=== PATIENT | female | born 1965 | race Caucasian/White ===

== ENCOUNTER 2018-05-29 04:38 | Observation (INO) | payer BC, SELFPAY ==
[2018-05-29] MEDS ORDERED: ONDANSETRON 4 MG/2 ML VIAL ONE (05:04)
[2018-05-29] MEDS ORDERED: NA CHLORIDE 0.9% 1,000 ML ONE (05:04)
[2018-05-29 05:19] LABS: Absolute Lymphocytes (CBC) 1.1 K/uL (0.7-4.9); Absolute Monocytes 0.4 K/uL (0.1-1.3); Basophils % 0.1 % (0-1.3); Lymphocytes % 7.3 % (15.3-44.8); MCH 30.5 pg (27.0-35.0); MCV 87.9 fL (80-100); MPV 10.6 fL (7.6-11.3); Monocytes % 3.1 % (3.3-12.3)
[2018-05-29 05:22] LABS: Protime INR 1.07
[2018-05-29 05:40] LABS: ALT/SGPT 32 U/L (12-78); AST/SGOT 7 U/L (15-37); BUN Blood Urea Nitrogen 24 mg/dL (7-18); Bicarbonate 26 mmol/L (21-32); Glucose Level 289 mg/dL (74-106); Potassium 4.1 mmol/L (3.5-5.1); Sodium Level 138 mmol/L (136-145)
[2018-05-29 05:41] LABS: Albumin 4.4 g/dL (3.4-5.0); Alkaline Phosphatase 133 U/L (45-117); Bilirubin Direct 0.1 mg/dL (0-0.2); Bilirubin Total 0.6 mg/dL (0.2-1.0); Lipase 131 U/L (73-393); Magnesium 2.5 mg/dL (1.8-2.4); NT PRO-BNP 75 pg/mL (<125); Protein, Total 8.5 g/dL (6.4-8.2); Troponin (Emerg Dept Use Only) < 0.02 ng/mL (0.0-0.045)
[2018-05-29 05:46] LABS: Blood Morphology Comment NOT SEEN (NOT SEEN); Platelet Estimate ADEQ
--- NOTE | 2018-05-29 06:35 | ER ---
Nurse's Notes [facility] Name: Breonna Torres Age: 53 yrs Sex: Female : 1965 Arrival Date: 05/29/2018 Time: 04:40 Bed 6 Private MD: Diagnosis: Altered mental status, unspecified;Essential (primary) hypertension;Elevated white blood cell count;Nausea Presentation: 05/29 04:54 Presenting complaint: Patient states: she takes tramadol for her chronic back pain and aa1 thinks she may have taken too much. Reports she is unsure how many pills she took but states she is having nausea and can't think straight and urinated on herself. Pt drove herself to ED and ambulated into lobby with steady gait. Pt denies intention to harm self. Transition of care: patient was not received from another setting of care. Onset of symptoms was May 29, 2018. Risk Assessment: Do you want to hurt yourself or someone else? Patient reports no desire to harm self or others. Initial Sepsis Screen: Does the patient meet any 2 criteria? No. Patient's initial sepsis screen is negative. Does the patient have a suspected source of infection? No. Patient's initial sepsis screen is negative. Care prior to arrival: None. 04:54 Method Of Arrival: Ambulatory aa1 04:54 Acuity: ISH 3 aa1 Triage Assessment: 05:05 General: Appears in no apparent distress. comfortable, Behavior is calm, cooperative, aa1 appropriate for age. 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 LMP N/A - Post-menopause hj Historical: - Allergies: 05:05 No Known Allergies; aa1 - Home Meds: 05:05 duloxetine 60 mg oral cpDR 1 cap twice a day [Active]; buspirone 10 mg Oral tab 1 tab 2 aa1 times per day [Active]; lorazepam 0.5 mg Oral tab 1 tab nightly [Active]; glipizide 10 mg Oral tab 1 tab 2 times per day [Active]; atorvastatin 20 mg oral tab 1 tab once daily [Active]; lisinopril 20 mg Oral tab 1 tab twice a day [Active]; carvedilol 12.5 mg oral tab 1 tab 2 times per day [Active]; - PMHx: 05:05 Depression; High Cholesterol; Hypertension; Anxiety; Diabetes - NIDDM; aa1 - PSHx: 05:05 lap band; Heart stents; aa1 - Immunization history:: Flu vaccine is not up to date. - Social history:: Smoking status: Patient/guardian denies using tobacco. - Family history:: not pertinent. - Ebola Screening: : No symptoms or risks identified at this time. Screenin:19 Abuse screen: Denies threats or abuse. Nutritional screening: No deficits noted. tl2 Tuberculosis screening: No symptoms or risk factors identified. Fall Risk Gait- Impaired (20 pts.). Assessment: 05:10 General: Appears in no apparent distress. uncomfortable, Behavior is cooperative, tl2 agitated, anxious. Pain: Denies pain. Neuro: Level of Consciousness is obeys commands, confused, Oriented to person, place, time, situation, Speech is normal, Reports dizziness. Cardiovascular: Denies chest pain. Respiratory: Airway is patent Respiratory effort is even, unlabored, Respiratory pattern is regular, symmetrical. GI: Reports nausea. : No signs and/or symptoms were reported regarding the genitourinary system. Derm: Skin is pink, warm \T\ dry. 06:20 Reassessment: Patient appears in no apparent distress at this time. Patient and/or tl2 family updated on plan of care and expected duration. Pain level reassessed. Patient is alert, oriented x 3, equal unlabored respirations, skin warm/dry/pink. Pt is calm and resting quietly, states she feels better. Patient states feeling better. 07:25 General: Appears in no apparent distress. uncomfortable, Behavior is calm, cooperative, hj appropriate for age. Pain: Denies pain. Neuro: Level of Consciousness is awake, alert, obeys commands, Oriented to person, place, time, situation, Reports dizziness. Cardiovascular: Denies chest pain. Respiratory: Airway is patent Respiratory effort is even, unlabored, Respiratory pattern is regular, symmetrical. GI: Reports nausea. : No signs and/or symptoms were reported regarding the genitourinary system. EENT: No signs and/or symptoms were reported regarding the EENT system. Derm: Skin is pink, warm \T\ dry. Musculoskeletal: No signs and/or symptoms reported regarding the musculoskeletal system. Vital Signs: 05:05 BP 205 / 114; Pulse 55; Resp 18; Temp 97.0; Pulse Ox 100% ; Weight 86.64 kg; Height 5 aa1 ft. 6 in. (167.64 cm); 06:08 BP 173 / 104; Pulse 60; Resp 12; Pulse Ox 95% on R/A; tl2 05:05 Body Mass Index 30.83 (86.64 kg, 167.64 cm) aa1 ED Course: 04:40 Patient arrived in ED. es 04:50 Иван Albrecht MD is Attending Physician. gudelia 04:57 Triage completed. aa1 05:04 Angie Ospina, MAKSIM is Primary Nurse. tl2 05:05 Arm band placed on right wrist. Patient placed in an exam room, on a stretcher. aa1 05:29 CT completed. Patient tolerated procedure well. Patient moved to CT via stretcher. Patient moved back from CT. 05:39 X-ray completed. Portable x-ray completed in exam room. Patient tolerated procedure kw well. 06:21 Patient has correct armband on for positive identification. Placed in gown. Bed in low tl2 position. Call light in reach. Side rails up X2. 06:33 Theodore Rhodes MD is Hospitalizing Provider. gudelia 06:38 CT Head Brain wo Cont In Process Unspecified. EDMS Administered Medications: 05:04 Drug: NS 0.9% 1000 ml Route: IV; Rate: 1 bolus; Site: right antecubital; tl2 08:28 Follow up: IV Status: Completed infusion; IV Intake: 1000ml hj 05:04 Drug: Zofran 4 mg Route: IVP; Site: right antecubital; tl2 07:04 Follow up: Response: No adverse reaction hj 08:07 Drug: Zofran 4 mg Route: IVP; Site: right antecubital; ph 08:28 Follow up: Response: No adverse reaction; Nausea is decreased hj Intake: 08:28 IV: 1000ml; Total: 1000ml. Outcome: 06:33 Decision to Hospitalize by Provider. gudelia 09:20 Patient left the ED. eb Signatures: Dispatcher [employer] EDMS Carla West, RN RN aa1 Иван Albrecht MD MD cha Salyer, Edna es Hagler, Ervin Mitzi Malagon Patricia, RN RN Giovanny Perales RN RN Angie Ospina RN RN tl2 Lilian Lai Corrections: (The following items were deleted from the chart) 05:05 05:04 General: Appears in no apparent distress. uncomfortable, tl2 tl2 05:05 05:04 General: Appears in no apparent distress. uncomfortable, tl2 tl2 06:20 05:10 Neuro: Level of Consciousness is obeys commands, confused, Oriented to person, tl2 place, time, situation, tl2
--- NOTE | 2018-05-29 06:35 | EDPHYS ---
Physician Documentation [facility] Name: Breonna Torres Age: 53 yrs Sex: Female : 1965 Arrival Date: 05/29/2018 Time: 04:40 Bed 6 Private MD: ED Physician Иван Albrecht HPI: 05/29 04:56 This 53 yrs old Female presents to ER via Unassigned with complaints of gudelia Possible Overdose. 04:56 Context: Method: the patient has a confirmed or suspected ingestion. Severity of gudelia symptoms: At their worst the symptoms were mild in the emergency department the symptoms are unchanged. The patient has experienced similar episodes in the past, a few times. 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 LMP N/A - Post-menopause hj Historical: - Allergies: 05:05 No Known Allergies; aa1 - Home Meds: 05:05 duloxetine 60 mg oral cpDR 1 cap twice a day [Active]; buspirone 10 mg Oral tab 1 tab 2 aa1 times per day [Active]; lorazepam 0.5 mg Oral tab 1 tab nightly [Active]; glipizide 10 mg Oral tab 1 tab 2 times per day [Active]; atorvastatin 20 mg oral tab 1 tab once daily [Active]; lisinopril 20 mg Oral tab 1 tab twice a day [Active]; carvedilol 12.5 mg oral tab 1 tab 2 times per day [Active]; - PMHx: 05:05 Depression; High Cholesterol; Hypertension; Anxiety; Diabetes - NIDDM; aa1 - PSHx: 05:05 lap band; Heart stents; aa1 - Immunization history:: Flu vaccine is not up to date. - Social history:: Smoking status: Patient/guardian denies using tobacco. - Family history:: not pertinent. - Ebola Screening: : No symptoms or risks identified at this time. ROS: 04:57 Constitutional: Negative for fever, chills, and weight loss, Eyes: Negative for injury, gudelia pain, redness, and discharge, ENT: Negative for injury, pain, and discharge, Neck: Negative for injury, pain, and swelling, Cardiovascular: Negative for chest pain, palpitations, and edema, Respiratory: Negative for shortness of breath, cough, wheezing, and pleuritic chest pain, Back: Negative for injury and pain, : Negative for injury, bleeding, discharge, and swelling, MS/Extremity: Negative for injury and deformity, Skin: Negative for injury, rash, and discoloration, Psych: Negative for depression, anxiety, suicide ideation, homicidal ideation, and hallucinations, Allergy/Immunology: Negative for hives, rash, and allergies, Endocrine: Negative for neck swelling, polydipsia, polyuria, polyphagia, and marked weight changes, Hematologic/Lymphatic: Negative for swollen nodes, abnormal bleeding, and unusual bruising. 04:57 Abdomen/GI: Positive for nausea and vomiting. Exam: 04:57 Constitutional: This is a well developed, well nourished patient who is awake, alert, gudelia and in no acute distress. Head/Face: Normocephalic, atraumatic. Eyes: Pupils equal round and reactive to light, extra-ocular motions intact. Lids and lashes normal. Conjunctiva and sclera are non-icteric and not injected. Cornea within normal limits. Periorbital areas with no swelling, redness, or edema. ENT: Nares patent. No nasal discharge, no septal abnormalities noted. Tympanic membranes are normal and external auditory canals are clear. Oropharynx with no redness, swelling, or masses, exudates, or evidence of obstruction, uvula midline. Mucous membranes moist. Neck: Trachea midline, no thyromegaly or masses palpated, and no cervical lymphadenopathy. Supple, full range of motion without nuchal rigidity, or vertebral point tenderness. No Meningismus. Chest/axilla: Normal chest wall appearance and motion. Nontender with no deformity. No lesions are appreciated. Cardiovascular: Regular rate and rhythm with a normal S1 and S2. No gallops, murmurs, or rubs. Normal PMI, no JVD. No pulse deficits. Respiratory: Lungs have equal breath sounds bilaterally, clear to auscultation and percussion. No rales, rhonchi or wheezes noted. No increased work of breathing, no retractions or nasal flaring. Abdomen/GI: Soft, non-tender, with normal bowel sounds. No distension or tympany. No guarding or rebound. No evidence of tenderness throughout. Back: No spinal tenderness. No costovertebral tenderness. Full range of motion. Female : Normal external genitalia. Skin: Warm, dry with normal turgor. Normal color with no rashes, no lesions, and no evidence of cellulitis. MS/ Extremity: Pulses equal, no cyanosis. Neurovascular intact. Full, normal range of motion. Neuro: Awake and alert, GCS 15, oriented to person, place, time, and situation. Cranial nerves II-XII grossly intact. Motor strength 5/5 in all extremities. Sensory grossly intact. Cerebellar exam normal. Normal gait. Psych: Awake, alert, with orientation to person, place and time. Behavior, mood, and affect are within normal limits. 07:36 Neck: ROM/movement: is normal, no acute changes, Meningeal signs: are not present, [facility] Kernig's sign is negative, Brudzinski's sign is negative. Vital Signs: 05:05 BP 205 / 114; Pulse 55; Resp 18; Temp 97.0; Pulse Ox 100% ; Weight 86.64 kg; Height 5 aa1 ft. 6 in. (167.64 cm); 06:08 BP 173 / 104; Pulse 60; Resp 12; Pulse Ox 95% on R/A; tl2 05:05 Body Mass Index 30.83 (86.64 kg, 167.64 cm) aa1 MDM: 04:51 Patient medically screened. [facility] 04:58 Data reviewed: vital signs, nurses notes, lab test result(s), EKG, radiologic studies, [facility] CT scan, plain films. 05/29 04:55 Order name: Basic Metabolic Panel [facility] 05/29 04:55 Order name: CBC with Diff; Complete Time: 06:27 [facility] 05/29 04:55 Order name: LFT's; Complete Time: 06:27 [facility] 05/29 04:55 Order name: Magnesium; Complete Time: 06:27 [facility] 05/29 04:55 Order name: NT PRO-BNP; Complete Time: 06:27 [facility] 05/29 04:55 Order name: PT-INR; Complete Time: 06:27 [facility] 05/29 04:55 Order name: Troponin (emerg Dept Use Only); Complete Time: 06:27 [facility] 05/29 04:55 Order name: Lipase; Complete Time: 06:27 [facility] 05/29 04:55 Order name: Acetaminophen; Complete Time: 06:27 [facility] 05/29 04:55 Order name: ETOH Level; Complete Time: 06:27 [facility] 05/29 04:55 Order name: Ptt, Activated; Complete Time: 06:27 [facility] 05/29 04:55 Order name: Salicylate; Complete Time: 06:27 [facility] 05/29 04:55 Order name: Urine Drug Screen [facility] 05/29 04:56 Order name: Basic Metabolic Panel; Complete Time: 06:27 [facility] 05/29 04:55 Order name: XRAY Chest (1 view) [facility] 05/29 04:55 Order name: EKG; Complete Time: 04:56 [facility] 05/29 04:55 Order name: Cardiac monitoring; Complete Time: 04:56 [facility] 05/29 04:55 Order name: EKG - Nurse/Tech; Complete Time: 04:56 [facility] 05/29 04:55 Order name: IV Saline Lock; Complete Time: 04:56 [facility] 05/29 04:55 Order name: Labs collected and sent; Complete Time: 04:56 [facility] 05/29 04:55 Order name: CT Head Brain wo Cont [facility] 05/29 04:56 Order name: Urine Culture [facility] 05/29 05:24 Order name: Manual Differential; Complete Time: 06:27 [facility] 05/29 07:54 Order name: Urine Dipstick--Ancillary (enter results) 05/29 08:27 Order name: RAD [facility] 05/29 08:38 Order name: Urine Dipstick-Ancillary [facility] 05/29 09:17 Order name: US [facility] 05/29 04:55 Order name: O2 Per Protocol; Complete Time: 04:56 [facility] 05/29 04:55 Order name: O2 Sat Monitoring; Complete Time: 04:56 [facility] 05/29 04:55 Order name: Urine Dipstick-Ancillary (obtain specimen); Complete Time: 08:28 [facility] Administered Medications: 05:04 Drug: NS 0.9% 1000 ml Route: IV; Rate: 1 bolus; Site: right antecubital; tl2 08:28 Follow up: IV Status: Completed infusion; IV Intake: 1000ml 05:04 Drug: Zofran 4 mg Route: IVP; Site: right antecubital; tl2 07:04 Follow up: Response: No adverse reaction hj 08:07 Drug: Zofran 4 mg Route: IVP; Site: right antecubital; ph 08:28 Follow up: Response: No adverse reaction; Nausea is decreased Disposition: 05/29/18 06:33 Hospitalization ordered by Theodore Rhodes for Observation. Preliminary diagnosis are Altered mental status, unspecified, Essential (primary) hypertension, Elevated white blood cell count, Nausea. - Bed requested for Telemetry/MedSurg (observation). - Status is Observation. eb - Condition is Fair. - Problem is new. - Symptoms have improved. UTI on Admission? No Signatures: Dispatcher [employer] EDMS Ewa Capone RN RN dw Kern, Alissa, RN RN aa1 Иван Albrecht MD MD cha Hall, Patricia, RN RN Angie Ospina RN RN tl2 Lilian Lai Henry RN Corrections: (The following items were deleted from the chart) 06:37 06:33 Hospitalization Ordered by Theodore Rhodes MD for Observation. Preliminary gudelia diagnosis is Altered mental status, unspecified; Essential (primary) hypertension. Bed requested for Telemetry/MedSurg (observation). Status is Observation. Condition is Fair. Problem is new. Symptoms have improved. UTI on Admission? No. gudelia 06:38 06:37 05/29/2018 06:33 Hospitalization Ordered by Theodore Rhodes MD for Observation. gudelia Preliminary diagnosis is Altered mental status, unspecified; Essential (primary) hypertension; Elevated white blood cell count. Bed requested for Telemetry/MedSurg (observation). Status is Observation. Condition is Fair. Problem is new. Symptoms have improved. UTI on Admission? No. gudelia 07:38 06:38 05/29/2018 06:33 Hospitalization Ordered by Theodore Rhodes MD for Observation. dw Preliminary diagnosis is Altered mental status, unspecified; Essential (primary) hypertension; Elevated white blood cell count; Nausea. Bed requested for Telemetry/MedSurg (observation). Status is Observation. Condition is Fair. Problem is new. Symptoms have improved. UTI on Admission? No. gudelia 09:20 07:38 05/29/2018 06:33 Hospitalization Ordered by Theodore Rhodes MD for Observation. eb Preliminary diagnosis is Altered mental status, unspecified; Essential (primary) hypertension; Elevated white blood cell count; Nausea. Bed requested for Telemetry/MedSurg (observation). Status is Observation. Condition is Fair. Problem is new. Symptoms have improved. UTI on Admission? No. dw
[2018-05-29] MEDS ORDERED: ONDANSETRON 4 MG/2 ML VIAL IV PRN (07:58)
[2018-05-29] MEDS ORDERED: ALPRAZOLAM 0.25 MG TABLET PO PRN (07:58)
[2018-05-29] MEDS ORDERED: ACETAMINOPHEN 500 MG TAB PO PRN (07:58)
[2018-05-29] MEDS ORDERED: METOPROLOL TARTRATE 5 MG/5 ML INJ IV PRN (08:01)
--- NOTE | 2018-05-29 08:20 | P.HP ---
Certification for Inpatient Patient admitted to: Observation With expected LOS: <2 Midnights Patient will require the following post-hospital care: None Practitioner: I am a practitioner with admitting privileges, knowledge of patient current condition, hospital course, and medical plan of care. Services: Services provided to patient in accordance with Admission requirements found in Title 42 Section 412.3 of the Code of Federal Regulations Patient History Date of Service: 05/29/18 Reason for admission: Altered mental status; unintentional Ultram overdose; uncontrolled HTN History of Present Illness: Patient is a 53-year-old female came to the hospital with confusion. She has chronic low back pain and was having a lot of pain yesterday. She was taking one Ultram after the other, but slowly realize that she was getting confused. Patient was altered and confused, and she fell nauseated as well. She came to the hospital to get evaluated. On further testing she had a leukocytosis with a left shift and she had pre renal azotemia. Decision was made to admit her to the hospital for further evaluation. Her vital signs also showed that her blood pressure was significantly elevated. She was running 220s/110s initially but after giving her some IV medication her blood pressure has come down to 170/ 100. She will be admitted to the hospital and will work her up for secondary hypertension. Allergies No Known Allergies Allergy (Verified 05/29/18 07:14) - Past Medical/Surgical History -: Chronic low back pain -: Hypertension -: Type 2 diabetes -: Dyslipidemia -: Coronary artery disease -: Lap band surgery -: Cardiac catheterization with stent - Family History Father Family History: Reviewed- Non-Contributory - Social History Smoking Status: Former smoker Alcohol use: No CD- Drugs: No Review of Systems 10-point ROS is otherwise unremarkable Physical Examination - Vital Signs Temperature: 98 F Blood Pressure: 180/110 Pulse: 80 Respirations: 18 Pulse Ox (%): 96 - Physical Exam General: Alert, In no apparent distress, Oriented x3 HEENT: Atraumatic, Normocephalic, PERRLA Neck: Supple, 2+ carotid pulse no bruit, JVD not distended, No Thyromegaly Respiratory: Clear to auscultation bilaterally, Normal air movement Cardiovascular: No edema, Normal pulses, Regular rate/rhythm, Normal S1 S2 Gastrointestinal: Normal bowel sounds, Hypoactive, Soft and benign, Non- distended Musculoskeletal: No clubbing, No swelling, No contractures Integumentary: No rashes Neurological: Normal gait, Normal speech, Normal strength at 5/5 x4 extr, Normal tone, Sensation intact, Cranial nerves 3-12 intact Lymphatics: No axilla or inguinal lymphadenopathy External genitalia: No edema - Studies Laboratory Data (last 24 hrs) 05/29/18 05:00: PT 12.6 H, INR 1.07, APTT 32.0 05/29/18 05:00: WBC 14.5 H, Hgb 15.2 H, Hct 44.0, Plt Count 322 05/29/18 05:00: Sodium 138, Potassium 4.1, BUN 24 H, Creatinine 1.10, Glucose 289 H, Magnesium 2.5 H, Total Bilirubin 0.6, AST 7 L, ALT 32, Alkaline Phosphatase 133 H, Lipase 131 Assessment & Plan - Problems (Diagnosis) (1) Altered mental status Current Visit: Yes Status: Acute (2) 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 IV hydration 2. Neuro checks q.4 3. Strict blood pressure control 4. Workup for causes of secondary hypertension 5. Lower blood pressure by 25% 6. Strict blood pressure and blood sugar control 7. GI and DVT prophylaxis Discharge Plan: Home Plan to discharge in: Greater than 2 days - Advance Directives Does patient have a Living Will: No Does patient have a Durable POA for Healthcare: No - Code Status/Comfort Care Code Status Assessed: Yes Code Status: Full Code Critical Care: No Time Spent Managing PTS Care (In Minutes): 50
--- NOTE | 2018-05-29 08:27 | RAD REPORT ---
EXAM DESCRIPTION: Carly Single View05/29/2018 6:56 am CLINICAL HISTORY: Cough COMPARISON: none FINDINGS: The lungs appear clear of acute infiltrate. The heart is normal size IMPRESSION: No acute abnormalities displayed
[2018-05-29 08:38] LABS: Urine Blood NEGATIVE (NEG); Urine Glucose 2+ (NEG); Urine Protein TRACE (NEG); Urine pH 5.5 (5.0-7.0)
[2018-05-29] MEDS ORDERED: CARVEDILOL 12.5 MG TAB PO SCH (09:00)
--- NOTE | 2018-05-29 09:07 | EKG ---
Test Date: 2018-05-29 Test Time: 05:02:19 Electric Switch Tester: REVA MEASUREMENT RESULTS: Intervals: Rate: 43 [place]: 134 QRSD: 92 QT: 522 QTc: 441 [employer]: P: 57 [place]: 134 QRS: 33 T: 71 INTERPRETIVE STATEMENTS: Marked sinus bradycardia Abnormal ECG No previous ECG available for comparison Electronically Signed On 05-29-18 09:07:02 CDT by Luis M Lindquist
--- NOTE | 2018-05-29 09:16 | RAD REPORT ---
EXAM DESCRIPTION: US - Renal Ultrasound-Complete - 05/29/2018 8:46 am CLINICAL HISTORY: . Hypertension/abdominal pain COMPARISON: None. FINDINGS: The right kidney measures 10 cm with a normal echotexture. The left kidney measures 10 cm with a normal echotexture. Hydronephrosis is not seen. IMPRESSION: Unremarkable renal ultrasound.
--- NOTE | 2018-05-29 09:48 | RAD REPORT ---
EXAM DESCRIPTION: CT - Head Brain Wo Cont - 05/29/2018 7:47 am CLINICAL HISTORY: Memory loss/alteration of awareness/overdose on medication COMPARISON: None. TECHNIQUE: Computed axial tomography of the head was obtained. IV contrast was not requested. Prelim inary report was generated by [employer] and reviewed prior to dictation All CT scans are performed using dose optimization technique as appropriate and may include automated exposure control or mA/KV adjustment according to patient size. FINDINGS: An intracranial bleed is not seen . The ventricles are normal in caliber. No extra-axial fluid collection is noted. An empty sella turcica is seen. Fluid within the sinuses/ mastoids is not seen. IMPRESSION: No acute intracranial abnormality is seen. If patient's symptoms persist MRI of the bra in would be recommended.
[2018-05-29] MEDS: NA CHLORIDE 0.9% 1,000 ML IV SCH ×2 (10:03→21:46)
[2018-05-29] MEDS: LISINOPRIL 20 MG TAB PO SCH ×2 (10:31→21:46)
[2018-05-29] MEDS: ENOXAPARIN 40 MG/0.4 ML SQ SCH (10:31)
--- NOTE | 2018-05-29 10:40 | RAD REPORT ---
EXAM DESCRIPTION: US - CP - 05/29/2018 8:46 am CLINICAL HISTORY: Secondary hypertension, syncope COMPARISON: None. TECHNIQUE: Real-time sonographic evaluation of both carotid systems was performed. Martinez scale and Do ppler interrogation were performed with waveform tracing bilaterally. FINDINGS: Normal high resistance waveforms are noted in both external carotid arteries. The common c arotid arteries and internal carotid arteries show normal low resistance waveforms. No significant plaque formation is seen. Peak systolic and end diastolic velocity values and the ICA/ CCA ratios are in the non-hemodynamically significant range. Antegrade flow seen in both vertebral arteries. Velocity values and ratios were recorded and are retained in the patient's imaging records. IMPRESSION: No significant atherosclerotic changes noted. No evidence of a hemodynamically significant stenosis.
[2018-05-29] MEDS ORDERED: INFLUENZA VACCINE (for 3y+) 0.5 ML DOSE IMVAC ONE (11:00)
--- NOTE | 2018-05-29 17:10 | ECHO ---
HEIGHT: 5 ft 7 in WEIGHT: 192 lb 11.2 oz DATE OF STUDY: 05/29/[address]: Theodore Rhodes MD 2-DIMENSIONAL: YES M.MODE: YES DOPPLER: YES COLOR FLOW: YES TDS: PORTABLE: DEFINITY: BUBBLE STUDY: DIAGNOSIS: UNCONTROLLED HYPERTENSION CARDIAC HISTORY: CATHERIZATION: YES SURGERY: NO PROSTHETIC VALVE: NO PACEMAKER: NO MEASUREMENTS (cm) DIASTOLIC (NORMALS) SYSTOLIC (NORMALS) IVSd 0.9 (0.6-1.2) LA Diam 3.7 (1.9-4.0) LVEF 68% LVIDd 5.0 (3.5-5.7) LVIDs 3.1 (2.0-3.5) %FS 38% LVPWd 0.9 (0.6-1.2) Ao Diam 2.5 (2.0-3.7) 2 DIMENSIONAL ASSESSMENT: RIGHT ATRIUM: NORMAL LEFT ATRIUM: NORMAL RIGHT VENTRICLE: NORMAL LEFT VENTRICLE: NORMAL TRICUSPID VALVE: NORMAL MITRAL VALVE: NORMAL PULMONIC VALVE: NORMAL AORTIC VALVE: NORMAL PERICARDIAL EFFUSION: NONE AORTIC ROOT: NORMAL LEFT VENTRICULAR WALL MOTION: NORMAL DOPPLER/COLOR FLOW: MILD MITRAL REGURGITATION. COMMENTS: NORMAL TWO DIMENSIONAL ECHOCARDIOGRAM. MILD MITRAL REGURGITATION. TECHNOLOGIST: SOURAV LAINEZ
[2018-05-29] MEDS ORDERED: HOME MED 1 EA UNK (Duloxetine Hcl [Cymbalta] 60 MG) PO SCH (21:00)
[2018-05-29] MEDS ORDERED: HOME MED 1 EA UNK (Buspirone Hcl [Buspar] 10 MG) PO SCH (21:00)
[2018-05-29] MEDS: DULOXETINE 30 MG CAP PO SCH (21:46)
[2018-05-29] MEDS: CARVEDILOL 12.5 MG TAB PO SCH (21:47)
[2018-05-29] MEDS: BUSPIRONE HCL 5 MG TABLET PO SCH (21:56)
[2018-05-29 22:49] LABS: Urine Appearance CLEAR; Urine Bilirubin NEGATIVE (NEG); Urine Blood NEGATIVE (NEG); Urine Color YELLOW; Urine Glucose NEGATIVE (NEG); Urine Protein NEGATIVE (NEG); Urine Specific Gravity 1.015 (1.005-1.030); Urine Urobilinogen 0.2 mg/dL (0.2-1.0)
[2018-05-29 22:56] LABS: Barbiturates NEGATIVE (NEGATIVE); Benzodiazepines NEGATIVE (NEGATIVE); Cocaine NEGATIVE (NEGATIVE); METHAMPHETAM NEGATIVE (NEGATIVE); Methadone NEGATIVE (NEGATIVE); Opiates NEGATIVE (NEGATIVE); Phencyclidine NEGATIVE (NEGATIVE); THC Cannibis NEGATIVE (NEGATIVE)
[2018-05-29 23:00] LABS: Urine Microscopic Reflex NO UMIC
[2018-05-30 06:14] LABS: Absolute Monocytes 1.1 K/uL (0.1-1.3); Basophils % 0.3 % (0-1.3); Eosinophils % 0.9 % (0-4.4); Hematocrit 34.9 % (36.0-45.0); Lymphocytes % 24.7 % (15.3-44.8); MCH 30.8 pg (27.0-35.0); MCV 89.6 fL (80-100); MPV 10.5 fL (7.6-11.3); Monocytes % 8.9 % (3.3-12.3); RBC Red Blood Cell Count 3.89 M/uL (3.86-4.86)
[2018-05-30 06:40] LABS: Albumin 3.1 g/dL (3.4-5.0); Bilirubin Total 0.3 mg/dL (0.2-1.0); Magnesium 2.3 mg/dL (1.8-2.4); Phosphorus 3.8 mg/dL (2.5-4.9); Potassium 4.2 mmol/L (3.5-5.1); Protein, Total 5.9 g/dL (6.4-8.2)
[2018-05-30 06:42] LABS: Thyroid Stimulating Hormone 4.01 uIU/mL (0.360-3.740)
[2018-05-30] MEDS: ENOXAPARIN 40 MG/0.4 ML SQ SCH (08:38)
[2018-05-30] MEDS: NA CHLORIDE 0.9% 1,000 ML IV SCH (08:38)
[2018-05-30] MEDS: BUSPIRONE HCL 5 MG TABLET PO SCH (08:39)
[2018-05-30] MEDS: DULOXETINE 30 MG CAP PO SCH (08:39)
[2018-05-30] MEDS: CARVEDILOL 12.5 MG TAB PO SCH (08:42)
[2018-05-30] MEDS: LISINOPRIL 20 MG TAB PO SCH (08:43)
[2018-05-30] MEDS ORDERED: ATORVASTATIN 20 MG TAB PO SCH (09:00)
[2018-05-30] MEDS ORDERED: ASPIRIN 81 MG CHEWABLE TABLET PO SCH (09:00)
--- NOTE | 2018-05-30 12:08 | P.SSS ---
Patient History Date of Service: 05/30/18 Reason for admission: Altered mental status; unintentional Ultram overdose; uncontrolled HTN History of Present Illness: Patient is a 53-year-old female came to the hospital with confusion. She has chronic low back pain and was having a lot of pain yesterday. She was taking one Ultram after the other, but slowly realize that she was getting confused. Patient was altered and confused, and she fell nauseated as well. She came to the hospital to get evaluated. On further testing she had a leukocytosis with a left shift and she had pre renal azotemia. Decision was made to admit her to the hospital for further evaluation. Her vital signs also showed that her blood pressure was significantly elevated. She was running 220s/110s initially but after giving her some IV medication her blood pressure has come down to 170/ 100. She will be admitted to the hospital and will work her up for secondary hypertension. Allergies No Known Allergies Allergy (Verified 05/29/18 09:17) Home Medications: Aspirin 81 mg PO DAILY 05/29/18 Atorvastatin Calcium [Lipitor*] 20 mg PO DAILY 05/29/18 Buspirone HCl [Buspar] 10 mg PO BID 05/29/18 Carvedilol [Coreg*] 12.5 mg PO BID 05/29/18 Duloxetine HCl [Cymbalta] 60 mg PO BID 05/29/18 Glipizide [Glucotrol] 10 mg PO BID 05/29/18 Mv-Mn/Folic Acid/Calcium/Vit K [Women's 50 Plus Daily Formula] 50 mg PO DAILY - Past Medical/Surgical History Has patient received pneumonia vaccine in the past: No Diabetic: Yes -: Chronic low back pain -: Hypertension -: Type 2 diabetes -: Dyslipidemia -: Coronary artery disease -: heart stent -: Lap band surgery -: Cardiac catheterization with stent - Social History Smoking Status: Never smoker Alcohol use: Yes CD- Drugs: Yes Caffeine use: Yes Place of Residence: Home Review of Systems 10-point ROS is otherwise unremarkable Physical Examination - Vital Signs Temperature: 97.6 F Blood Pressure: 109/57 Pulse: 62 Respirations: 16 Pulse Ox (%): 91 - Physical Exam General: Alert, In no apparent distress HEENT: Atraumatic, PERRLA, Mucous membr. moist/pink, EOMI, Sclerae nonicteric Neck: Supple, 2+ carotid pulse no bruit, No LAD, Without JVD or thyroid abnormality Respiratory: Clear to auscultation bilaterally, Normal air movement Cardiovascular: Regular rate/rhythm, Normal S1 S2 Gastrointestinal: Normal bowel sounds, No tenderness Musculoskeletal: No tenderness Integumentary: No rashes Neurological: Normal gait, Normal speech, Normal strength at 5/5 x4 extr, Normal tone, Normal affect Lymphatics: No axilla or inguinal lymphadenopathy - Diagnosis (Problem(s)) (1) Altered mental status Onset Date: 05/30/18 Status: Resolved Qualifiers: Altered mental status type: delirium Qualified Code(s): R41.0 - Disorientation, unspecified (2) 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 Patient had marked improvement after tramadol was stopped here in the hospital patient received IV fluids as well here in the hospital. Patient was alert and oriented x3 and thus was discharged home under stable condition. Patient also worked with physical therapy while here in the hospital. - Disposition Disposition: ROUTINE DISCHARGE Condition: GOOD Patient Discharge Instructions: Please f.u with PCP in 1 to 2 week post discharge. No New medication Diet: Regular Activity: Ad pao
== END 2018-05-30 11:12 | disposition home or self-care (01) ==
LOC: ER 04:38 → ERHOLD 06:35 → 2ND 08:37
PROVIDERS: ADMIT Hospitalist; ATTEND Hospitalist
DX: R41.82 Altered mental status, unspecified (principal); T40.4X5A Adverse effect of other synthetic narcotics, initial encounter; Y92.009 Unspecified place in unspecified non-institutional (private) residence as the place of occurrence of the external cause; G89.29 Other chronic pain; M54.5 Low back pain; I10 Essential (primary) hypertension; I25.10 Atherosclerotic heart disease of native coronary artery without angina pectoris; E11.9 Type 2 diabetes mellitus without complications; Z87.891 Personal history of nicotine dependence; Z98.84 Bariatric surgery status; Z95.5 Presence of coronary angioplasty implant and graft; Z23 Encounter for immunization
CPT/HCPCS: 36415; 70450; 71045; 76770; 80048; 80053; 80076; 80307; 80320; 80329; 81003; 82962; 83690; 83735; 83880; 84100; 84439; 84443; 84484; 85025; 85610; 85730; 93005; 93306; 93880; 96361; 96374; 99284; G0008; G0378; J1650; J2405; J7030; Q2035